=== PATIENT | male | born 1960 | race Caucasian/White ===

== ENCOUNTER 2019-11-01 10:58 | Emergency (ER) | payer BC ==
[2019-11-01 12:07] VITALS: BP 150/62; PULSE 98
--- NOTE | 2019-11-01 12:46 | EDM.PDOC ---
Scribed by Nancy Daley 11/01/19 1246 for Dionisio Burger MD ED HPI GENERAL MEDICAL PROBLEM - General Chief Complaint: Respiratory Problem Stated Complaint: POSSIBLE FLU Time Seen by Provider: 11/01/19 12:02 Source of Information: Reports: Patient, RN, RN Notes Reviewed History Limitations: Reports: No Limitations - History of Present Illness INITIAL COMMENTS - FREE TEXT/NARRATIVE: Patient presents to ER by POV with complaints of being exposed to influenza by his daughter and this past week and with his asthma he is concerned. Did notice an increase in cough. Denies fever or any other symptoms. Onset: Gradual Duration: Getting Worse Location: Reports: Chest Quality: Reports: Ache Severity: Moderate Improves with: Reports: None Worsens with: Reports: None Context: Reports: Sick Contact Associated Symptoms: Reports: No Other Symptoms - Related Data Allergies Allergy/AdvReac Type Severity Reaction Status Date / Time bee pollen [Bee Pollen] Allergy Anaphylactic Verified 04/24/16 21:48 Shock Penicillins Allergy Swelling Verified 04/24/16 21:48 Home Meds: Home Meds Cyclobenzaprine HCl 10 08/26/13 [History] Fluticasone/Vilanterol [Breo Ellipta 200-25 MCG Inhalation Kit] 04/24/16 [ History] Levothyroxine 150 mcg PO DAILY 04/24/16 [History] Past Medical History - Past Health History Medical/Surgical History: Denies Medical/Surgical History Respiratory History: Reports: Asthma Gastrointestinal History: Reports: Other (See Below) Other Gastrointestinal History: Kidney stone Endocrine/Metabolic History: Reports: Obesity/BMI 30+ - Past Surgical History Endocrine Surgical History: Reports: Thyroidectomy ED ROS GENERAL - Review of Systems Review Of Systems: Comprehensive ROS is negative, except as noted in HPI. ED EXAM, GENERAL - Physical Exam Exam: See Below Exam Limited By: No Limitations General Appearance: Alert, WD/WN, No Apparent Distress, Obese Eye Exam: Bilateral Eye: Normal Inspection Ears: Normal External Exam, Normal Canal, Hearing Grossly Normal, Normal TMs Nose: No Blood, Nasal Drainage (clear) Throat/Mouth: Normal Inspection, Normal Lips, Normal Teeth, Normal Gums, Normal Oropharynx, Normal Voice, No Airway Compromise Head: Atraumatic, Normocephalic Neck: Normal Inspection, Supple, Non-Tender, Full Range of Motion. No: Lymphadenopathy (L), Lymphadenopathy (R) Respiratory/Chest: No Respiratory Distress, No Accessory Muscle Use, Chest Non- Tender, Crackles. No: Rales, Rhonchi, Wheezing, Stridor Cardiovascular: Regular Rate, Rhythm Neurological: Alert, Oriented, No Motor/Sensory Deficits Psychiatric: Normal Mood Skin Exam: Warm, Dry, Intact, Normal Color, No Rash Course - Vital Signs Last Recorded V/S: Last Vital Signs Temp 98.1 F 11/01/19 12:00 Pulse 98 11/01/19 12:00 Resp 16 11/01/19 12:00 BP 150/62 H 11/01/19 12:00 Pulse Ox 98 11/01/19 12:00 - Orders/Labs/Meds Orders: Active Orders 24 hr Category Date Time Status Chest 2V [CR] Urgent Exams 11/01/19 11:59 Taken Labs: Influenza: Positive. Influenza B: Negative. Departure - Departure Time of Disposition: 12:44 Disposition: Home, Self-Care 01 Condition: Good Clinical Impression: Influenza A - Discharge Information *PRESCRIPTION DRUG MONITORING PROGRAM REVIEWED*: Not Applicable *COPY OF PRESCRIPTION DRUG MONITORING REPORT IN PATIENT [place]: Not Applicable Instructions: Influenza, Adult, [id number] Forms: ED Department Discharge Additional Instructions: RX: Tamiflu 75mg. RX: Prednisone 20 mg. Rest. Drink plenty of fluids. Follow up in clinic if not improving in 1 week. Sepsis Event Note - Focused Exam Vital Signs: Vital Signs Temp Pulse Resp BP Pulse Ox 11/01/19 12:00 98.1 F 98 16 150/62 H 98 Date Exam was Performed: 11/01/19 Time Exam was Performed: 12:45 - My Orders Last 24 Hours: My Active Orders 11/01/19 11:59 Chest 2V [CR] Urgent - Assessment/Plan Last 24 Hours: My Active Orders 11/01/19 11:59 Chest 2V [CR] Urgent I have read and agree with the documentation that has been completed regarding this visit. By signing this record, I attest that the documentation was completed in my physical presence and is an accurate record of the encounter.
== END 2019-11-01 12:55 | disposition home or self-care (01) ==
LOC: DL.ED 10:58
DX: J10.1 Influenza due to other identified influenza virus with other respiratory manifestations (principal); E66.9 Obesity, unspecified; Z68.43 Body mass index [BMI] 50.0-59.9, adult; Z88.0 Allergy status to penicillin; Z91.030 Bee allergy status; Z79.899 Other long term (current) drug therapy
CPT/HCPCS: 71046; 87804; 99283-25

== ENCOUNTER 2021-01-31 16:53 | Emergency (ER) | payer OTHER, BC ==
[2021-01-31 17:23] VITALS: BP 142/76; PULSE 83
[2021-01-31] MEDS ORDERED: Ibuprofen 800 MG Tab PO ONE (17:45)
[2021-01-31] MEDS ORDERED: Acetaminophen/HYDROcodone 325-10 MG Tab PO ONE (17:45)
--- NOTE | 2021-01-31 18:44 | CT ---
PROCEDURE INFORMATION: Exam: CT Lumbar Spine Without Contrast Exam date and time: 01/31/2021 6:25 PM Age: 60 years old Clinical indication: Injury or trauma; Fall; Injury date: Today; Additional info: Fell off 5' platform, head, neck, low back injury TECHNIQUE: Imaging protocol: Computed tomography images of the lumbar spine without contrast. Radiation optimization: All CT scans at this facility use at least one of these dose optimization techniques: automated exposure control; mA and/or kV adjustment per patient size (includes targeted exams where dose is matched to clinical indication); or iterative reconstruction. COMPARISON: No relevant prior studies available. FINDINGS: Vertebrae: The facet joints demonstrate mild degenerative hypertrophy and sclerosis. There is no evidence of acute fracture. Discs/Spinal canal/Neural foramina: The lumbar spine demonstrates mild degenerative changes at multiple levels. Disc space narrowing and bilateral neural foraminal narrowing noted at L1-L2, L2-L3, L3-L4 and L4-L5. Kidneys and ureters: Right renal calcifications are partially imaged. Soft tissues: Unremarkable. IMPRESSION: 1. The lumbar spine demonstrates mild degenerative changes at multiple levels. 2. No evidence of acute fracture. 3. Right renal calcifications are partially imaged.
--- NOTE | 2021-01-31 18:56 | CT ---
PROCEDURE INFORMATION: Exam: CT Head Without Contrast Exam date and time: 01/31/2021 6:25 PM Age: 60 years old Clinical indication: Injury or trauma; Fall; Injury date: Today; Injury details: Fell off 5' platform, head, neck, low back injury, has abrasion on his head TECHNIQUE: Imaging protocol: Computed tomography of the head without contrast. Radiation optimization: All CT scans at this facility use at least one of these dose optimization techniques: automated exposure control; mA and/or kV adjustment per patient size (includes targeted exams where dose is matched to clinical indication); or iterative reconstruction. COMPARISON: No relevant prior studies available. FINDINGS: Brain: No mass effect or midline shift. No abnormal densities are seen intracranially; no sign of acute intracranial hemorrhage or cerebral edema. Cerebral ventricles: No ventriculomegaly. Paranasal sinuses: Visualized sinuses are unremarkable. No fluid levels. Mastoid air cells: Visualized mastoid air cells are well aerated. Bones/joints: Skull base and overlying calvarium are intact. No lytic or osteosclerotic lesions. Soft tissues: Unremarkable. IMPRESSION: No sign of acute intracranial injury or skull fracture.
[2021-01-31] MEDS ORDERED: Bacitracin Oint 1 GM U/D Packet TOP ONE (18:58)
[2021-01-31] MEDS ORDERED: Cyclobenzaprine 10 MG Tab PO ONE (19:00)
--- NOTE | 2021-01-31 19:04 | CT ---
PROCEDURE INFORMATION: Exam: CT Cervical Spine Without Contrast Exam date and time: 01/31/2021 6:25 PM Age: 60 years old Clinical indication: Injury or trauma; Fall; Injury date: Today; Additional info: Fell off 5' platform, head, neck, low back injury TECHNIQUE: Imaging protocol: Computed tomography images of the cervical spine without contrast. Radiation optimization: All CT scans at this facility use at least one of these dose optimization techniques: automated exposure control; mA and/or kV adjustment per patient size (includes targeted exams where dose is matched to clinical indication); or iterative reconstruction. COMPARISON: No relevant prior studies available. FINDINGS: Bones/joints: There are no perched or locked facets and the craniocervical relationship is normal. No acute fracture. Larynx: Spondylosis contributing to multilevel central canal stenosis and bilateral C3-C4 foraminal stenosis. Lungs: Lung apices are normal. Soft tissues: Unremarkable. IMPRESSION: No sign of acute cervical spine injury.
--- NOTE | 2021-01-31 19:15 | EDM.PDOC ---
Scribed by Nancy Daley 01/31/21 0119 for Hang Burger MD ED HPI GENERAL MEDICAL PROBLEM - General Chief Complaint: Trauma Stated Complaint: FELL, HEAD, ELBOW, BACK, Time Seen by Provider: 01/31/21 17:19 Source of Information: Reports: Patient, RN, RN Notes Reviewed History Limitations: Reports: No Limitations - History of Present Illness INITIAL COMMENTS - FREE TEXT/NARRATIVE: Patient presents to ED by POV stating that around 1430 today he fell backwards out of a semitrailer, landing on his back. States [facility] has an operations developer nurse/doctor line that recommended he be seen. Patient made an appointment at [facility] with Dr. Burden, but when he went to the appointment, patient states Dr. Burden's nurse recommended he be seen here in the ER. States he is having lower back pain and right elbow pain. Denies LOC but states "I wasn't making sense" when he first fell. Denies prior injury to back. Onset: Today Duration: Constant Location: Reports: Back Quality: Reports: Ache Severity: Moderate Improves with: Reports: None Worsens with: Reports: None Associated Symptoms: Reports: No Other Symptoms Lower Back Pain Score (Numeric/FACES): 3 Right Elbow Pain Score (Numeric/FACES): 4 - Related Data Allergies Allergy/AdvReac Type Severity Reaction Status Date / Time bee pollen [Bee Pollen] Allergy Anaphylactic Verified 04/24/16 21:48 Shock Home Meds: Home Meds Furosemide 20 mg PO DAILY 09/24/20 [History] Levothyroxine 275 mcg PO DAILY 09/24/20 [History] Montelukast [Singulair] 10 mg PO DAILY 09/24/20 [History] Sertraline [Zoloft] 100 mg PO DAILY 09/24/20 [History] metFORMIN HCl [Metformin HCl] 1,000 mg PO BIDAC 09/24/20 [History] Glimepiride 4 mg PO DAILY 01/31/21 [History] Past Medical History - Past Health History Medical/Surgical History: Denies Medical/Surgical History Respiratory History: Reports: Asthma Gastrointestinal History: Reports: Other (See Below) Other Gastrointestinal History: Kidney stone Musculoskeletal History: Reports: Arthritis Endocrine/Metabolic History: Reports: Diabetes, Type II, Hypothyroidism, Obesity/BMI 30+ - Infectious Disease History Infectious Disease History: Reports: Other (See Below) Other Infectious Disease History: coronavirus 09/23/2020 - Past Surgical History Endocrine Surgical History: Reports: Thyroidectomy Social & Family History - Family History Family Medical History: No Pertinent Family History - Caffeine Use Caffeine Use: Reports: Coffee, Soda - Living Situation & Occupation Living situation: Reports: Occupation: Employed Review of Systems - Review of Systems Review Of Systems: Comprehensive ROS is negative, except as noted in HPI. ED EXAM, GENERAL - Physical Exam Exam: See Below Exam Limited By: No Limitations General Appearance: Alert, No Apparent Distress, Obese Eye Exam: Bilateral Eye: EOMI, Normal Inspection, PERRL Ears: Normal External Exam, Normal Canal, Hearing Grossly Normal, Normal TMs Nose: Normal Inspection, No Blood Throat/Mouth: Normal Lips, Normal Voice, No Airway Compromise Head: Normocephalic, Other (Posterior/superior scalp abrasion, superficial) Neck: Normal Inspection, Full Range of Motion, Tender Lateral (at paraspinal soft tissues). No: Tender Midline Respiratory/Chest: No Respiratory Distress, Lungs Clear, Normal Breath Sounds, No Accessory Muscle Use, Chest Non-Tender Cardiovascular: Regular Rate, Rhythm GI/Abdominal: Normal Bowel Sounds, Soft, Non-Tender, Other (Benign obese abdomen) Back Exam: Decreased Range of Motion (due to low back pain), Muscle Spasm, Paraspinal Tenderness (Lumbar), Vertebral Tenderness (Lumbar). No: CVA Tenderness (L), CVA Tenderness (R) Extremities: Normal Inspection, Normal Range of Motion, Non-Tender, Normal Capillary Refill, No Pedal Edema Neurological: Alert, Oriented, CN II-XII Intact, Normal Cognition, No Motor/Sensory Deficits Psychiatric: Normal Affect, Normal Mood Skin Exam: Warm, Dry, Normal Color Course - Vital Signs Last Recorded V/S: Last Vital Signs Temp 99.3 F 01/31/21 17:01 Pulse 83 01/31/21 17:01 Resp 16 01/31/21 17:01 BP 142/76 H 01/31/21 17:01 Pulse Ox 97 01/31/21 17:01 - Orders/Labs/Meds Labs: Laboratory Tests 01/31/21 01/31/21 Range/Units 17:47 17:47 Urine Color Yellow (YELLOW) Urine Appearance Clear (CLEAR) Urine pH 5.0 (5.0-9.0) Ur Specific [place] 1.020 (1.005-1.030) Urine Protein Negative (NEGATIVE) Urine Glucose (UA) Negative (NEGATIVE) Urine Ketones Negative (NEGATIVE) Urine Occult Blood Negative (NEGATIVE) Urine Nitrite Negative (NEGATIVE) Urine Bilirubin Negative (NEGATIVE) Urine Urobilinogen 0.2 (0.2-1.0) mg/dL Ur Leukocyte Esterase Negative (NEGATIVE) Urine Opiates Screen Negative (NEGATIVE) Ur Oxycodone Screen Negative (NEGATIVE) Urine Methadone Screen Negative (NEGATIVE) Ur Barbiturates Screen Negative (NEGATIVE) U Tricyclic Antidepress Negative (NEGATIVE) Ur Phencyclidine Scrn Negative (NEGATIVE) Ur Amphetamine Screen Negative (NEGATIVE) U Methamphetamines Scrn Negative (NEGATIVE) Urine MDMA Screen Negative (NEGATIVE) U Benzodiazepines Scrn Negative (NEGATIVE) Urine Cocaine Screen Negative (NEGATIVE) U Marijuana (THC) Screen Negative (NEGATIVE) Meds: Medications Discontinued Medications Generic Name Dose Route Start Last Admin Trade Name Freq PRN Reason Stop Dose Admin Hydrocodone Bitart/Acetaminophen 1 tab 01/31/21 17:45 01/31/21 18:03 Acetaminophen/Hydrocodone 325-10 Mg Tab PO 01/31/21 17:46 1 tab ONETIME ONE Administration Bacitracin 1 dose 01/31/21 18:58 Bacitracin Oint 1 Gm U/D Packet TOP 01/31/21 18:59 ONETIME ONE Cyclobenzaprine HCl 10 mg 01/31/21 19:00 Cyclobenzaprine 10 Mg Tab PO 01/31/21 19:01 ONETIME ONE Ibuprofen 800 mg 01/31/21 17:45 01/31/21 18:05 Ibuprofen 800 Mg Tab PO 01/31/21 17:46 800 mg ONETIME ONE Administration - Radiology Interpretation Free Text/Narrative:: [facility] [place] [facility] Final Radiology Report Call: [phone] assistance Online chat: [email or web address] Name: VIDYA EDWARD Age: 60Years M Date: 01/31/2021 SSN: -- : 1960 Study: CT LUMBAR SPINE WO CONT Requesting Physician: HANG BURGER Images: [id number] Addl Studies: Provided Clinical History: fell off 5' platform, head, neck, low back injury Contrast: Without Contrast Medium: Contrast Amount: Contrast Method: Page 1 of 2 PROCEDURE INFORMATION: Exam: CT Lumbar Spine Without Contrast Exam date and time: 01/31/2021 6:25 PM Age: 60 years old Clinical indication: Injury or trauma; Fall; Injury date: Today; Additional info: Fell off 5' platform, head, neck, low back injury TECHNIQUE: Imaging protocol: Computed tomography images of the lumbar spine without contrast. Radiation optimization: All CT scans at this facility use at least one of these dose optimization techniques: automated exposure control; mA and/or kV adjustment per patient size (includes targeted exams where dose is matched to clinical indication); or iterative reconstruction. COMPARISON: No relevant prior studies available. FINDINGS: Vertebrae: The facet joints demonstrate mild degenerative hypertrophy and sclerosis. There is no evidence of acute fracture. Discs/Spinal canal/Neural foramina: The lumbar spine demonstrates mild degenerative changes at multiple levels. Disc space narrowing and bilateral neural foraminal narrowing noted at L1-L2, L2-L3, L3-L4 and L4-L5. Kidneys and ureters: Right renal calcifications are partially imaged. Soft tissues: Unremarkable. IMPRESSION: 1. The lumbar spine demonstrates mild degenerative changes at multiple levels. 2. No evidence of acute fracture. 3. Right renal calcifications are partially imaged. VIDYA EDWARD | Final Radiology Report CONFIDENTIALITY STATEMENT This report is intended only for use by the referring physician, and only in accordance with law. If you received this in error, call [phone]. Page 2 of 2 Thank you for allowing us to participate in the care of your patient. Dictated and Authenticated by: Roni Dominguez DO 01/31/2021 6:43 PM Central Time ([place] & [place]) [facility] Final Radiology Report Call: [phone] assistance Online chat: [email or web address] Name: VIDYA EDWARD Age: 60Years M Date: 01/31/2021 SSN: -- : 1960 Study: CT HEAD WO CONT Requesting Physician: HANG BURGER Images: [id number] Addl Studies: Provided Clinical History: fell off 5' platform, head, neck, low back injury Contrast: Without Contrast Medium: Contrast Amount: Contrast Method: Page 1 of 2 PROCEDURE INFORMATION: Exam: CT Head Without Contrast Exam date and time: 01/31/2021 6:25 PM Age: 60 years old Clinical indication: Injury or trauma; Fall; Injury date: Today; Injury details: Fell off 5' platform, head, neck, low back injury, has abrasion on his head TECHNIQUE: Imaging protocol: Computed tomography of the head without contrast. Radiation optimization: All CT scans at this facility use at least one of these dose optimization techniques: automated exposure control; mA and/or kV adjustment per patient size (includes targeted exams where dose is matched to clinical indication); or iterative reconstruction. COMPARISON: No relevant prior studies available. FINDINGS: Brain: No mass effect or midline shift. No abnormal densities are seen intracranially; no sign of acute intracranial hemorrhage or cerebral edema. Cerebral ventricles: No ventriculomegaly. Paranasal sinuses: Visualized sinuses are unremarkable. No fluid levels. Mastoid air cells: Visualized mastoid air cells are well aerated. Bones/joints: Skull base and overlying calvarium are intact. No lytic or osteosclerotic lesions. Soft tissues: Unremarkable. IMPRESSION: No sign of acute intracranial injury or skull fracture. Thank you for allowing us to participate in the care of your patient. VIDYA EDWARD | Final Radiology Report CONFIDENTIALITY STATEMENT This report is intended only for use by the referring physician, and only in accordance with law. If you received this in error, call [phone]. Page 2 of 2 Dictated and Authenticated by: Hair Medeiros MD 01/31/2021 6:56 PM Central Time ([place] & [place]) [facility] [place] [facility] Final Radiology Report Call: [phone] assistance Online chat: [email or web address] Name: VIDYA EDWARD Age: 60Years M Date: 01/31/2021 SSN: -- : 1960 Study: CT CERVICAL SPINE WO CONT Requesting Physician: HANG BURGER Images: [id number] Addl Studies: Provided Clinical History: fell off 5' platform, head, neck, low back injury Contrast: Without Contrast Medium: Contrast Amount: Contrast Method: Page 1 of 2 PROCEDURE INFORMATION: Exam: CT Cervical Spine Without Contrast Exam date and time: 01/31/2021 6:25 PM Age: 60 years old Clinical indication: Injury or trauma; Fall; Injury date: Today; Additional info: Fell off 5' platform, head, neck, low back injury TECHNIQUE: Imaging protocol: Computed tomography images of the cervical spine without contrast. Radiation optimization: All CT scans at this facility use at least one of these dose optimization techniques: automated exposure control; mA and/or kV adjustment per patient size (includes targeted exams where dose is matched to clinical indication); or iterative reconstruction. COMPARISON: No relevant prior studies available. FINDINGS: Bones/joints: There are no perched or locked facets and the craniocervical relationship is normal. No acute fracture. Larynx: Spondylosis contributing to multilevel central canal stenosis and bilateral C3-C4 foraminal stenosis. Lungs: Lung apices are normal. Soft tissues: Unremarkable. IMPRESSION: No sign of acute cervical spine injury. Thank you for allowing us to participate in the care of your patient. VIDYA EDWARD | Final Radiology Report CONFIDENTIALITY STATEMENT This report is intended only for use by the referring physician, and only in accordance with law. If you received this in error, call [phone]. Page 2 of 2 Dictated and Authenticated by: Hair Medeiros MD 01/31/2021 7:04 PM Central Time ([place] & [place]) Departure - Departure Time of Disposition: 19:05 Disposition: Home, Self-Care 01 Condition: Good Clinical Impression: Acute low back pain due to trauma, Lumbar paraspinal muscle spasm, Work related injury Minor head injury without loss of consciousness Qualifiers: Encounter type: initial encounter Qualified Code(s): S09.90XA - Unspecified injury of head, initial encounter Scalp abrasion Qualifiers: Encounter type: initial encounter Qualified Code(s): S00.01XA - Abrasion of scalp, initial encounter - Discharge Information *PRESCRIPTION DRUG MONITORING PROGRAM REVIEWED*: No *COPY OF PRESCRIPTION DRUG MONITORING REPORT IN PATIENT [place]: No Instructions: Concussion, Adult, Abrasion, Acute Back Pain, Adult Forms: ED Department Discharge Sepsis Event Note (ED) - Focused Exam Vital Signs: Vital Signs Temp Pulse Resp BP Pulse Ox 01/31/21 17:01 99.3 F 83 16 142/76 H 97 I have read and agree with the documentation that has been completed regarding this visit. By signing this record, I attest that the documentation was completed in my physical presence and is an accurate record of the encounter.
== END 2021-01-31 19:33 | disposition home or self-care (01) ==
LOC: DL.ED 16:53
DX: S39.92XA Unspecified injury of lower back, initial encounter (principal); S00.01XA Abrasion of scalp, initial encounter; M62.830 Muscle spasm of back; J45.909 Unspecified asthma, uncomplicated; E11.9 Type 2 diabetes mellitus without complications; E03.9 Hypothyroidism, unspecified; E66.9 Obesity, unspecified; Z68.43 Body mass index [BMI] 50.0-59.9, adult; Z79.84 Long term (current) use of oral hypoglycemic drugs; Y99.0 Civilian activity done for income or pay; Z91.030 Bee allergy status; W17.89XA Other fall from one level to another, initial encounter
CPT/HCPCS: 70450; 72125; 72131; 80305-QW; 81003; 99284; 99284-25; A9270-GY

== ENCOUNTER 2021-09-04 06:26 | Day surgery (SDC) | payer BC, OTHER ==
[~2021-09-04 06:26] MED LIST: Midazolam 1 MG/ML 2 ML SDV ONE; fentaNYL 100 MCG/2 ML SDV ONE
[2021-09-04] MEDS ORDERED: Midazolam 1 MG/ML 2 ML SDV IV ONE ×4 (06:27→07:32)
[2021-09-04] MEDS ORDERED: fentaNYL 100 MCG/2 ML SDV IV ONE ×3 (06:27→07:26)
[2021-09-04] MEDS ORDERED: Dextrose 5%-0.45% NaCl 1,000 ML IV SCH (06:55)
[2021-09-04 09:42] VITALS: BP 120/66; PULSE 62
--- NOTE | 2021-09-04 10:09 | OR ---
DATE: 09/04/2021 PROCEDURE: Total colonoscopy. INSTRUMENT USED: PCF-H190DL Olympus video colonoscope. PREMEDICATIONS: Fentanyl 100 mcg intravenous, Versed 2.5 mg intravenous. Nasal O2 cannula. The procedure was done under pulse oximetry, BP recording, and site monitor. INDICATION: Screening colonoscopic examination is done for detection of any polypoid lesions and removal, endoscopic hemostasis therapy if needed. DESCRIPTION OF PROCEDURE: Initial rectal exam was unremarkable. Rigid anoscopy was normal. Colonoscope was passed with ease. Few scattered diverticula were noted in the distal left colon. The scope was passed with ease up to ileocecal area. Photographs were taken of the normal-appearing cecum identified by landmarks of appendiceal orifice and double bulged ileocecal folds. No bleeding was noted from any of the visualized areas at the commencement of the examination. The bowel preparation was found to be adequate, [place] scale 2 in left and right colon, 3 in transverse colon, total score 7. No stricture. No vascular ectasia. No large isolated ulcerations seen. No evidence of diffuse inflammatory bowel disease in the form of friability, contact bleeding, or ulcerations. No polyp or tumor mass identified. Probing the proximal sides of folds and flexures using adequate distention and clearing up the stool material, withdrawal of the scope was made, cecum to rectum time over 9 minutes. No bleeding was noted from any of the visualized areas at completion of examination. IMPRESSION: Diverticulosis. The patient tolerated the procedure well. [facility] /[id number]
== END 2021-09-04 09:45 | disposition home or self-care (01) ==
LOC: DL.ENDO 06:26
PROVIDERS: ATTEND Internal Medicine Gastroenterology
DX: Z12.11 Encounter for screening for malignant neoplasm of colon (principal); K57.31 Diverticulosis of large intestine without perforation or abscess with bleeding; E66.09 Other obesity due to excess calories; G47.30 Sleep apnea, unspecified; E11.9 Type 2 diabetes mellitus without complications; K43.9 Ventral hernia without obstruction or gangrene; F41.1 Generalized anxiety disorder; F32.A Depression, unspecified; Z88.0 Allergy status to penicillin; Z90.49 Acquired absence of other specified parts of digestive tract; Z98.890 Other specified postprocedural states; Z01.812 Encounter for preprocedural laboratory examination; Z20.822 Contact with and (suspected) exposure to COVID-19; Z68.43 Body mass index [BMI] 50.0-59.9, adult
CPT/HCPCS: 45378; 87635; J2250; J3010; J7042; U0002

== ENCOUNTER 2021-11-10 21:13 | Emergency (ER) | payer BC ==
[2021-11-10] MEDS ORDERED: Cefepime 2 GM in Sodium Chloride 0.9% 50 ML IV ONE (21:42)
[2021-11-10] MEDS ORDERED: Sodium Chloride 0.9% 10 ML Syringe FLUSH PRN (21:42)
[2021-11-10 22:02] LABS: CHLORIDE,CL 102 mmol/L (98-107); ESTIMATED GFR > 60; SODIUM,NA 136 mmol/L (136-145)
[2021-11-10 22:57] VITALS: BP 127/65; PULSE 78
== END 2021-11-10 22:56 | disposition home or self-care (01) ==
LOC: DL.ED 21:13
DX: L03.115 Cellulitis of right lower limb (principal); E11.9 Type 2 diabetes mellitus without complications; I10 Essential (primary) hypertension; E03.9 Hypothyroidism, unspecified; K21.9 Gastro-esophageal reflux disease without esophagitis; F41.9 Anxiety disorder, unspecified; F32.A Depression, unspecified; E66.9 Obesity, unspecified; Z68.43 Body mass index [BMI] 50.0-59.9, adult; Z79.899 Other long term (current) drug therapy; Z87.891 Personal history of nicotine dependence; Z91.030 Bee allergy status
CPT/HCPCS: 36415; 80053; 85025; 87040; 96365; 99283; J0692; J3490

== ENCOUNTER 2025-03-26 13:23 | Emergency (ER) | payer BC ==
[2025-03-26 13:45] VITALS: BP 145/59; PULSE 74
[2025-03-26] MEDS: Potassium Chloride 10% 20 MEQ/15 ML Soln 15 ML UD Cup PO ONE (13:58)
== END 2025-03-26 14:39 | disposition home or self-care (01) ==
LOC: DL.ED 13:23
DX: E87.6 Hypokalemia (principal); E11.9 Type 2 diabetes mellitus without complications; J45.909 Unspecified asthma, uncomplicated; E03.9 Hypothyroidism, unspecified; Z86.16 Personal history of COVID-19; Z91.030 Bee allergy status; Z79.899 Other long term (current) drug therapy; Z79.890 Hormone replacement therapy; Z79.51 Long term (current) use of inhaled steroids
CPT/HCPCS: 99284; A9270

== ENCOUNTER 2025-04-16 12:32 | Emergency (ER) | payer BC ==
[2025-04-16] MEDS ORDERED: Sodium Chloride 0.9% 10 ML Syringe FLUSH PRN (13:03)
[2025-04-16 13:17] LABS: PLATELET COUNT,PLT 294 10^3/uL (150-450); RED BLOOD CELL COUNT 3.95 10^6/uL (4.6-6.2); WHITE BLOOD CELL COUNT,WBC 5.7 10^3/uL (5.0-10.0)
[2025-04-16 13:19] LABS: BASOPHILS PERCENT AUTO 0.9 % (0.0-1.0); EOSINOPHILS PERCENT AUTO 1.4 % (1.0-3.0); LYMPHOCYTES PERCENT AUTO 10.6 % (20.5-50.1); NEUTROPHILS PERCENT AUTO 80.1 % (42.2-75.2)
[2025-04-16 13:20] LABS: MONOCYTES PERCENT AUTO 7.0 % (2-8)
[2025-04-16 13:28] LABS: EOSINOPHILS PERCENT MAN 2 % (1-3); LYMPHOCYTES PERCENT MAN 9 % (20-50); MONOCYTES PERCENT MAN 9 % (2-8); SEG NEUTROPHILS PERCENT MAN 80 % (42-75)
[2025-04-16 13:31] LABS: INR 0.9 (0.9-1.2); PTT,PARTIAL THROMBOPLSTIN TIME 27.7 SEC (22.0-34.0)
[2025-04-16 13:33] LABS: B-TYPE NATRIURETIC PEPTIDE,BNP 61.0 pg/ml (0-100)
[2025-04-16 13:35] LABS: ALANINE AMINOTRANSFERASE,ALT 16.0 U/L (16-63); ASPARTATE AMNIOTRANSFERASE,AST 14.0 U/L (15-37); BILIRUBIN TOTAL 0.6 mg/dL (0.2-1.0); BLOOD UREA NITROGEN,BUN 20.0 mg/dL (7-18); CARBON DIOXIDE,CO2 27.0 mmol/L (21-32); CHLORIDE,CL 109.0 mmol/L (98-107); CREATININE 0.94 mg/dL (0.70-1.30); EST CRCL DRUG DOSING (CG) 79.39 mL/min; GLUCOSE RANDOM 133.0 mg/dL (70-99); POTASSIUM,K 4.0 mmol/L (3.5-5.1); PROTEIN TOTAL,TP 5.8 g/dL (6.4-8.2); SODIUM,NA 144.0 mmol/L (136-145)
[2025-04-16 13:43] LABS: A/G RATIO 0.93; ESTIMATED GFR 91.0 mL/min (>=60)
[2025-04-16] MEDS: Potassium Chloride 10 MEQ Tab.ER PO ONE (14:10)
[2025-04-16] MEDS: Furosemide 40 MG/4 ML VIAL IVPUSH ONE (14:10)
[2025-04-16 15:01] VITALS: BP 112/59; PULSE 65
== END 2025-04-16 15:24 | disposition home or self-care (01) ==
LOC: DL.ED 12:32
DX: R60.0 Localized edema (principal); E11.9 Type 2 diabetes mellitus without complications; E03.9 Hypothyroidism, unspecified; I50.9 Heart failure, unspecified; J45.909 Unspecified asthma, uncomplicated; E66.9 Obesity, unspecified; Z79.899 Other long term (current) drug therapy; Z91.030 Bee allergy status; Z68.43 Body mass index [BMI] 50.0-59.9, adult
CPT/HCPCS: 36415; 71046; 80053; 83735; 83880; 84484; 85025; 85610; 85730; 93005; 93010; 96374; 99283; 99285-25; A9270-GY; J1938